=== PATIENT | female | born 1960 | race Caucasian/White ===

== ENCOUNTER 2019-08-26 10:09 | Emergency (ER) | payer BC ==
[2019-08-26 11:49] VITALS: BP 123/66
--- NOTE | 2019-08-26 12:13 | UC ---
Throat Pain/Nasal Akbar HPI - HPI Summary HPI Summary: 58 y/o female presents to the urgent care c/o Sore throat for 3 days, fatigued, body aches, clear nasal discharge and congestion and mild WALKER. Pain woke her this morning, difficulty swallowing. Pain w/ swallowing is 8/10. She has not taking anything to alleviate symptoms. she is concerned w/ strep since she lives w/ her grandson now. Pt denies fever, SOB, cough, dizziness, chest pain, abdominal pain, N/V/D. - History of Current Complaint Chief Complaint: UCGeneralIllness Stated Complaint: SORE THROAT Time Seen by Provider: 08/26/19 12:08 Hx Obtained From: Patient Onset/Duration: Gradual Onset, Lasting Days - 3 days, Still Present, Worse Since - yesterday Severity: Moderate Pain Intensity: 8 - when swallowing Pain Scale Used: 0-10 Numeric Cough: None Associated Signs & Symptoms: Positive: Sinus Discomfort, Nasal Discharge - clear , Other - body aches. Negative: Dysphagia, Wheezing, Fever - Allergies/Home Medications Allergies/Adverse Reactions: Allergies Allergy/AdvReac Type Severity Reaction Status Date / Time No Known Allergies Allergy Verified 08/26/19 11:49 PMH/Surg Hx/FS Hx/Imm Hx Previously Healthy: Yes - Pt denies PMHX - Surgical History Surgical History: Yes Surgery Procedure, Year, and Place: tumor removal ovaries; hysterectomy; C-SECT X 1; CHOLECYSTECTOMY; GANGLION CYSTS REMOVED (lt leg,rt leg,lt hand); BUNIONECTOMY X 2 RIGHT FOOT(with screws); ACL SX R KNEE. X2; REMOVED BURSA FROM rt elbow; BASAL JOINT LEFT THUMB - Family History Known Family History: Positive: Cardiac Disease, Hypertension, Diabetes - Social History Occupation: Employed Full-time Lives: With Family Alcohol Use: Rare Alcohol Amount: 1 drink every 2-3 days Substance Use Type: None Smoking Status (MU): Current Every Day Smoker Type: eCigarettes Amount Used/How Often: 1 PPD Length of Time of Smoking/Using Tobacco: 41 YRS - Immunization History Most Recent Influenza Vaccination: not this season Review of Systems All Other Systems Reviewed And Are Negative: Yes Constitutional: Positive: Fatigue, Other - body aches Eyes: Positive: Negative ENT: Positive: Sore Throat, Nasal Discharge - clear, Sinus Congestion, Sinus Pain/Tenderness, Other - PND Respiratory: Positive: Negative Cardiovascular: Positive: Negative Gastrointestinal: Positive: Negative Genitourinary: Positive: Negative Motor: Positive: Negative Neurovascular: Positive: Negative Musculoskeletal: Positive: Myalgia Neurological: Positive: Headache Psychological: Positive: Negative Is Patient Immunocompromised?: No Physical Exam - Summary Physical Exam Summary: VITAL SIGNS: Reviewed. GENERAL: Patient is a well developed and nourished female who is sitting comfortably in the examining table. Patient is not in any acute respiratory distress. HEAD AND FACE: No signs of trauma. No ecchymosis, hematomas or skull depressions. No sinus tenderness. EYES: PERRLA, EOMI x 2, No injected conjunctiva, no nystagmus. No photophobia. EARS: Hearing grossly intact. Ear canals and tympanic membranes are within normal limits. MOUTH: Positive pharynx with mild erythema, no exudates, No B/L tonsillar enlargement , no exudate. Uvula in midline. edematous nasal mucosa w/ clear nasal discharge, clear PND NECK: Supple, trachea is midline, Positive anterior cervical lymphadenopathy, no JVD, no carotid bruit, no c-spine tenderness, neck with full ROM. No meningeal signs, no Kernig's or brudzinskis signs. CHEST: Symmetric, no tenderness at palpation LUNGS: Clear to auscultation bilaterally. No wheezing or crackles. CVS: Regular rate and rhythm, S1 and S2 present, no murmurs or gallops appreciated. ABDOMEN: Soft, non-tender. No signs of distention. No rebound no guarding, and no masses palpated. Bowel sounds are normal. EXTREMITIES: FROM in all major joints, no edema, no cyanosis or clubbing. NEURO: Alert and oriented x 3. No acute neurological deficits. Pt follows commands. SKIN: Dry and warm Triage Information Reviewed: Yes Vital Signs: Initial Vital Signs Temp 97.7 F 08/26/19 11:45 Pulse 84 08/26/19 11:45 Resp 16 08/26/19 11:45 BP 123/66 08/26/19 11:45 Pulse Ox 96 08/26/19 11:45 Throat Pain/Nasal Course/Dx - Course Course Of Treatment: 58 y/o female presents to the urgent care c/o Sore throat for 3 days, fatigued, body aches, clear nasal discharge and congestion and mild WALKER. Pain woke her this morning, difficulty swallowing. Pain w/ swallowing is 8/10. She has not taking anything to alleviate symptoms. she is concerned w/ strep since she lives w/ her grandson now. Pt denies fever, SOB, cough, dizziness, chest pain, abdominal pain, N/V/D. Hx obtained. Pt w/ pharyngitis on examination.Rapid strep : negative, Rapid influenza A&B: negative. Pt decline ibuprofen here. Pt w/ Viral pharyngitis. PT strongly advised to take Ibuprofen PO after meals PO to alleviate symptoms and if symptoms worsen to f/u w/ her PCP in 2-3 days. D/C instructions explained. PT understood and agreed w/ plan of care. - Differential Dx/Diagnosis Differential Diagnosis/HQI/PQRI: Influenza, Laryngitis, Mononucleosis, Pharyngitis, Sinusitis, Tonsillitis, URI Provider Diagnosis: Pharyngitis Discharge ED - Sign-Out/Discharge Documenting (check all that apply): Patient Departure - D/C home All imaging exams completed and their final reports reviewed: No Studies - Discharge Plan Condition: Stable Disposition: HOME Patient Education Materials: Pharyngitis (ED) Referrals: Yamile Tang MD [Primary Care Provider] - 3 Days Additional Instructions: 1-Please take ibuprofen PO q6-8hrs prn as instructed after meals to alleviate pain and swelling. Increase fluid intake, eat well, rest and avoid strenuous exercise 2-If symptoms do not improve or worsen please return to the urgent care or f/u with your PCP in 2-3 days for further evaluation and treatment. - Billing Disposition and Condition Condition: STABLE Disposition: Home
[2019-08-26 12:39] LABS: Influenza A Molecular NEGATIVE (Negative); Influenza B Molecular NEGATIVE (Negative)
== END 2019-08-26 12:46 | disposition home or self-care (01) ==
LOC: UCCORT 10:09
DX: J02.9 Acute pharyngitis, unspecified (principal); R53.83 Other fatigue; F17.290 Nicotine dependence, other tobacco product, uncomplicated; M79.10 Myalgia, unspecified site; R09.89 Other specified symptoms and signs involving the circulatory and respiratory systems; R09.81 Nasal congestion
CPT/HCPCS: 87651; 99211; G0463

== ENCOUNTER 2019-08-29 17:22 | Emergency (ER) | payer BC ==
[2019-08-29 17:54] VITALS: BP 139/79
--- NOTE | 2019-08-29 18:12 | UC ---
Throat Pain/Nasal Akbar HPI - HPI Summary HPI Summary: Patient is a 58yo female presenting with sore throat, nasal congestion, and mild productive cough x5 days. Patient states she was seen here 3 days ago for same symptoms and had negative strep and flu tests. States she was told she had URI but states symptoms are worsening now. Notes SOB at times. Denies wheezing but notes chest tightness when coughing. Also c/o hoarse voice. Denies fever and chills. Denies n/v. States she took 600mg of ibuprofen yesterday morning and this morning without relief. Patient is an everyday e-cigarette smoker. Denies h/o asthma and COPD. - History of Current Complaint Chief Complaint: UCGeneralIllness Stated Complaint: ST,CHEST CONGESTION Hx Obtained From: Patient Onset/Duration: Gradual Onset, Lasting Days Pain Intensity: 10 Pain Scale Used: 0-10 Numeric - Allergies/Home Medications Allergies/Adverse Reactions: Allergies Allergy/AdvReac Type Severity Reaction Status Date / Time No Known Allergies Allergy Verified 08/29/19 17:54 Home Medications: Home Medications Ibuprofen TAB* [Motrin TAB* 600 MG] 600 mg PO Q8H PRN 08/29/19 [History Confirmed 08/29/19] Pantoprazole TAB * [Protonix TAB*] 20 mg PO DAILY 08/29/19 [History Confirmed ] Sertraline* [Zoloft*] 100 mg PO DAILY 08/29/19 [History Confirmed 08/29/19] PMH/Surg Hx/FS Hx/Imm Hx - Surgical History Surgical History: Yes Surgery Procedure, Year, and Place: tumor removal ovaries; hysterectomy; C-SECT X 1; CHOLECYSTECTOMY; GANGLION CYSTS REMOVED (lt leg,rt leg,lt hand); BUNIONECTOMY X 2 RIGHT FOOT(with screws); ACL SX R KNEE. X2; REMOVED BURSA FROM rt elbow; BASAL JOINT LEFT THUMB - Family History Known Family History: Positive: Cardiac Disease, Hypertension, Diabetes - Social History Alcohol Use: Rare Alcohol Amount: 1 drink every 2-3 days Substance Use Type: None Smoking Status (MU): Current Every Day Smoker Type: eCigarettes Amount Used/How Often: 1 PPD Length of Time of Smoking/Using Tobacco: 41 YRS - Immunization History Most Recent Influenza Vaccination: not this season Review of Systems All Other Systems Reviewed And Are Negative: Yes Constitutional: Positive: Negative. Negative: Fever, Chills ENT: Positive: Sore Throat, Ear Ache - b/l ear fullness, Sinus Congestion. Negative: Nasal Discharge, Sinus Pain/Tenderness Respiratory: Positive: Shortness Of Breath - intermittently, Cough - mild productive, Other - chest tightness when coughing Cardiovascular: Positive: Negative Gastrointestinal: Positive: Negative. Negative: Vomiting, Nausea Musculoskeletal: Positive: Negative. Negative: Myalgia Neurological: Positive: Negative. Negative: Headache Physical Exam Triage Information Reviewed: Yes Appearance: Well-Appearing, No Pain Distress, Well-Nourished Vital Signs: Initial Vital Signs Temp 99.8 F 08/29/19 17:50 Pulse 93 08/29/19 17:50 Resp 20 08/29/19 17:50 BP 139/79 08/29/19 17:50 Pulse Ox 99 08/29/19 17:50 Vital Signs Reviewed: Yes Eyes: Positive: Conjunctiva Clear ENT: Positive: Hearing grossly normal, Pharynx normal, TMs normal, Hoarse voice , Uvula midline. Negative: Tonsillar swelling, Tonsillar exudate, Trismus, Muffled voice Neck exam: Normal Neck: Positive: Supple, Nontender, No Lymphadenopathy Respiratory Exam: Normal Respiratory: Positive: Lungs clear, Normal breath sounds, No respiratory distress, No accessory muscle use. Negative: Crackles, Rhonchi, Stridor, Wheezing Cardiovascular Exam: Normal Cardiovascular: Positive: RRR Neurological: Positive: Alert Psychological: Positive: Age Appropriate Behavior Skin Exam: Normal Throat Pain/Nasal Course/Dx - Course Course Of Treatment: Educated patient on viral URI and viral bronchitis. VS nromal and lung sounds clear. Instructed patient to continue with symptomatic treatment including use of tessalon perles and inhaler for SOB. Instructed to follow up with PCP if symptoms persist or to go to ED with new or worsening symptoms. - Differential Dx/Diagnosis Provider Diagnosis: URI (upper respiratory infection), Viral bronchitis Discharge ED - Sign-Out/Discharge Documenting (check all that apply): Patient Departure All imaging exams completed and their final reports reviewed: No Studies - Discharge Plan Condition: Stable Disposition: HOME Prescriptions: Albuterol HFA INHALER* [Ventolin HFA Inhaler*] 1 - 2 puff INH Q6H PRN #1 mdi PRN Reason: Sob/Wheezing Benzonatate CAP* [Tessalon 100 MG CAP*] 100 mg PO BID PRN #14 cap PRN Reason: Cough Patient Education Materials: Upper Respiratory Infection (ED), Acute Bronchitis (ED) Referrals: Yamile Tang MD [Primary Care Provider] - If Needed Additional Instructions: You may take the tessalon perles as prescribed to help alleviate coughing. Use the inhaler as needed for your shortness of breath. You may continue to take ibuprofen and/or tylenol for pain relief. Throat lozenges, throat sprays, and tea with honey may help relieve sore throat. Get plenty of rest and fluids and refrain from smoking while symptoms are present. Follow up with your primary care doctor if your symptoms worsen or do not resolve within 7-10 days. - Billing Disposition and Condition Condition: STABLE Disposition: Home
== END 2019-08-29 18:39 | disposition home or self-care (01) ==
LOC: UCCORT 17:22
DX: J06.9 Acute upper respiratory infection, unspecified (principal); J20.8 Acute bronchitis due to other specified organisms; F17.290 Nicotine dependence, other tobacco product, uncomplicated
CPT/HCPCS: 99212; G0463